=== PATIENT | female | born 1995 | race Hispanic/Latino ===

== ENCOUNTER 2024-06-26 10:29 | Emergency (ER) | payer SELFPAY ==
--- NOTE | ~2024-06-26 | CT_ITS ---
Non-contrast Head CT History: Syncope Technique: Axial non-contrast imaging of the brain was performed. Dose reduction technique was used on this scan by utilizing automated exposure control and iterative reconstruction technique. The dose -length product (DLP) was 529.67 mGy-cm. Findings: There is no evidence of intracranial hemorrhage, mass lesion, or acute infarct. Brain par enchyma appears normal. The ventricles and subarachnoid spaces are normal in size. The calvarium ap pears normal. The visualized paranasal sinuses and mastoid air cells are clear. Impression: No significant abnormality seen. Reviewed, dictated and finalized at location . Impression: No significant abnormality seen.
--- NOTE | 2024-06-26 10:30 | ECG_ITS ---
Test Date: 2024-06-26 10:30:51 Measurements Intervals [place] Rate: 73 P: 32 HI: 115 QRS: 62 QRSD: 88 T: 60 QT: 388 QTc: 430 Interpretive Statements SINUS RHYTHM WITH SHORT HI INTERVAL POSSIBLE RIGHT VENTRICULAR CONDUCTION DELAY [RSR (QR) IN V1/V2] BORDERLINE ECG No previous ECG available for comparison Electronically Signed On 06-27-2024 13:05:26 CDT by Luis Foy M.D.
[2024-06-26 10:37] VITALS: BP 113/80; PULSE 69; RESP 12; TEMP 36.7; O2SAT 100
--- NOTE | 2024-06-26 10:42 | ED.GENADULT ---
HPI - General Adult General Chief complaint: Unspecified Stated complaint: unresponsive Time Seen by Provider: 06/26/24 10:33 History of Present Illness HPI narrative: 22-year-old female presenting to the emergency department for evaluation after having a single episode. Patient reports she was working cleaning a house when she states her vision went dark and then she blacked out. Patient states she does feel improved at this time but does still have some residual lightheaded dizziness. Patient states that she did not drink any alcohol or take any drugs today. Patient states she has had this happen before and was worked up and no underlying etiology was identified. Review of Systems Review of Systems: All systems reviewed & are unremarkable except as noted in HPI and below Exam Narrative: APPEARANCE: Well appearing, no pain, no distress, well-nourished. HEAD: normocephalic, atraumatic. EYES: PERRLA/EOMI, conjunctivae clear. NOSE: Normal no drainage EARS:TMS clear with good light reflex. THROAT: Pharynx clear, no exudate. NECK: Supple. No adenopathy, no masses. RESPIRATORY: Airway patent, respirations nonlabored. Clear to auscultation bilaterally, no rales, rhonchi, wheezing. CARDIOVASCULAR: Regular rate and rhythm without murmurs rubs or gallops. ABDOMINAL: Soft, nontender, nondistended, normal bowel sounds MUSCULOSKELETAL: Moves all extremities. Strength/ROM intact, No edema, No calf tenderness. NEURO: Alert. Cranial nerves II through XII intact. Good gait. Good coordination SKIN: Warm, dry. Normal Color Course Course Emergency Course: Patient felt improved and requested to be discharged home. Vital Signs Vital signs: Vital Signs Temperature 98.1 F 06/26/24 10:37 Pulse Rate 69 06/26/24 10:37 Respiratory Rate 12 06/26/24 10:37 Blood Pressure 113/80 06/26/24 10:37 Pulse Oximetry 100 06/26/24 10:37 Oxygen Delivery Room Air 06/26/24 10:37 Temperature 98.7 F 06/26/24 13:20 Pulse Rate 75 06/26/24 13:20 Respiratory Rate 18 06/26/24 13:20 Blood Pressure 109/71 06/26/24 13:20 Pulse Oximetry 100 06/26/24 13:20 Oxygen Delivery Room Air 06/26/24 10:37 Medical Decision Making MDM Narrative Medical decision making narrative: 28-year-old female presents to the emergency department for evaluation after having a syncopal episode this morning. Patient does feel improved at this time. Patient denies any associated chest pain or shortness of breath. Patient is afebrile but does have a leukocytosis 10.7 a stable hemoglobin of 13.8. Patient had no acute abnormalities on her CMP or UA. Drug screen was negative. Head CT was negative. On re-evaluation patient states she does feel improved. Patient denies any complaints at this time. Patient is requesting discharge home. Patient was advised to have close follow-up with primary care physician. Differential Diagnosis Differential Diagnosis: Syncope, any syncope, orthostatic hypotension, dehydration Vital Signs Vital Signs: Vital Signs Temperature 98.1 F 06/26/24 10:37 Pulse Rate 69 06/26/24 10:37 Respiratory Rate 12 06/26/24 10:37 Blood Pressure 113/80 06/26/24 10:37 Pulse Oximetry 100 06/26/24 10:37 Oxygen Delivery Room Air 06/26/24 10:37 Temperature 98.7 F 06/26/24 13:20 Pulse Rate 75 06/26/24 13:20 Respiratory Rate 18 06/26/24 13:20 Blood Pressure 109/71 06/26/24 13:20 Pulse Oximetry 100 06/26/24 13:20 Oxygen Delivery Room Air 06/26/24 10:37 Lab Data Lab results reviewed: Yes I reviewed the patient's lab results. 06/26/24 10:49 06/26/24 10:50 Labs: Lab Results 06/26/24 06/26/24 06/26/24 Range/Units 10:49 10:50 11:28 WBC 10.7 H (4.5-10.0) K/mm3 RBC 4.24 (4.2-5.4) M/mm3 Hgb 13.8 (12.0-15.0) g/dL Hct 40.3 (37.0-47.0) % MCV 95.0 (80-100) fl MCH 32.5 (26-34) pg MCHC 34.2 (32-36) g/dl RDW 13.0 (11.5-14.5
[2024-06-26 10:53] LABS: Glucose Point of Care 91 mg/dl (65-105)
[2024-06-26 10:56] LABS: Basophils Absolute Auto 0.1 K/mm3 (0.0-0.1); Basophils Percent Auto 0.7 % (0.2-1.2); Eosinophils Absolute Auto 1.7 K/mm3 (0-0.3); Eosinophils Percent Auto 15.5 % (0-4.4); Hematocrit 40.3 % (37.0-47.0); Hemoglobin 13.8 g/dL (12.0-15.0); Immature Granulocyte Absolute 0.03 K/mm3 (0.00-0.031); Immature Granulocyte Percent A 0.3 % (0-0.5); Lymphocytes Percent Auto 27.9 % (18.3-44.2); Mean Corpuscular HGB Conc 34.2 g/dl (32-36); Mean Corpuscular Hemoglobin 32.5 pg (26-34); Mean Platelet Volume 9.7 fl (7.4-10.4); Monocytes Absolute Auto 0.6 K/mm3 (0.1-0.6); Monocytes Percent Auto 5.5 % (2.6-8.5); Neutrophils Absolute Auto 5.4 K/mm3 (1.3-6.7); Neutrophils Percent Auto 50.1 % (45.5-73.1); Platelet Count Result 312 k/mm3 (150-375); Red Blood Count 4.24 M/mm3 (4.2-5.4); White Blood Count 10.7 K/mm3 (4.5-10.0)
[2024-06-26 11:00] VITALS: PULSE 73
[2024-06-26 11:07] LABS: Alanine Aminotransferase 22 U/L (6-35); Albumin Level 4.8 g/dL (3.5-5.1); Alkaline Phosphatase 64 U/L (38-126); Anion Gap 15 mmol/L (4-12); Aspartate Amino Transferase 28 U/L (14-36); Bilirubin,Total 0.6 mg/dL (0.2-1.3); Blood Urea Nitrogen 8 mg/dL (7-17); Calcium 9.6 mg/dL (8.4-10.2); Carbon Dioxide 22 mmol/L (22-30); Chloride 102 mmol/L (98-107); Estimated CRCL calculation 99 ml/min; Estimated Glomerular Filt Rate > 60; Glucose 91 mg/dL (65-110); Potassium 3.3 mmol/L (3.4-5.0); Sodium 139 mmol/L (137-145)
[2024-06-26 11:08] LABS: Ethanol < 10 mg/dL (<10)
[2024-06-26 11:13] VITALS: RESP 17
[2024-06-26 11:59] LABS: Amphetamine Screen Urine Negative (Negative); Barbiturate Screen Urine Negative (Negative); Benzodiazepines Screen Urine Negative (Negative); Cannabinoid Screen Urine Negative (Negative); Cocaine Screen Urine Negative (Negative); Methadone Screen Urine Negative (Negative); Opiate Screen Urine Negative (Negative); Phencyclidine Screen Urine Negative (Negative)
[2024-06-26 13:20] VITALS: BP 109/71; PULSE 75; RESP 18; TEMP 37.1; O2SAT 100
== END 2024-06-26 13:24 | disposition home or self-care (01) ==
PROVIDERS: Emergency Provider Emergency Medicine
DX: R55 Syncope and collapse (principal); R94.31 Abnormal electrocardiogram [ECG] [EKG]
CPT/HCPCS: 36415; 70450; 80053; 80307; 82948; 83735; 84443; 85025; 93005; 99284